=== PATIENT | female | born 1950 | race Caucasian/White ===

== ENCOUNTER → 2016-06-14 | Outpatient (CLI) | payer MEDICARE, BC ==
[~2016-06-14] MED LIST: ASPIRINEC PO; CALCIUM CITRATE + D PO; LORTAB 7.5-5001 TAB PO; PROZAC PO; TOPROL XL PO
--- NOTE | ~2016-06-14 | CT4 ---
[facility] A Service of [facility] RADIOLOGY TEXT RESULTS PATIENT: EREN KLEIN [facility] UNIT #: [id number] AGE: [address]: Haseeb Hernadez MD SEX: F ORDER DR: [id number] [facility] [address] [place], [place] [address] [id number] O MR#: [id number] Acc #: [id number] NAME: EREN KLEIN. : 1950 SEX: F STUDY DATE/TIME: 06/14/2016 10:26 UNIT: [facility] ROOM: STUDY DESCRIPTION: CT Abd and Pelv Wo Cont Attending Physician: Haseeb Hernadez M.D. Referring Physician: Haseeb Hernadez M.D. Ordering Physician: Haseeb Hernadez M.D. Primary Care Physician: Haseeb Hernadez M.D. MEDICAL IMAGING REPORT This report is preliminary unless electronic signature is present EXAM CT abdomen and pelvis without contrast INDICATION Hematuria for the past month with lower abdominal pain for the past [address] of the abdomen and pelvis. This CT exam was performed with one or more of the following radiation dose reduction techniques: automatic exposure control, adjustment of mA and/or kV according to patient size, and iterative reconstruction. COMPARISON 04/15/2013 FINDINGS ABDOMEN WITHOUT CONTRAST: The included lung bases are predominately clear. Liver measures 18.4 cm in length. There is mild hepatic steatosis. The spleen, adrenal glands, pancreas, gallbladder have an unremarkable, unenhanced appearance. Bowel loops are nondilated. 1.2 cm cyst lower pole of the right kidney. There is no radiodense urinary system calculus or hydronephrosis. PELVIS WITHOUT CONTRAST: No radiodense bladder calculus. Previous hysterectomy. No pelvic mass or fluid. No aggressive-appearing bone lesion. IMPRESSION 1. No acute findings. No radiodense urinary system calculus or hydronephrosis. 2. Small cyst lower pole right kidney. [facility] A Service of [facility] RADIOLOGY TEXT RESULTS PATIENT: EREN KLEIN LOCATION: [facility] : 48 UNIT #: [id number] AGE: [address]: Haseeb Hernadez MD SEX: F ORDER DR: 3. Mild hepatic steatosis. Dictated by... Valentin Abdullahi M.D. THIS IS AN ELECTRONICALLY VERIFIED REPORT Valentin Abdullahi M.D. at 06/15/2016 7:07 AM VERONIKA/[email or web address] TD: 06/14/2016 14:00 JOB #: [id number] MEDICAL IMAGING REPORT COPY
== END | disposition home or self-care (01) ==
LOC: CCAT 09:53
DX: R31.29 Other microscopic hematuria (principal); N28.1 Cyst of kidney, acquired; K76.0 Fatty (change of) liver, not elsewhere classified
CPT/HCPCS: 74176